=== PATIENT | female | born 1970 | race Caucasian/White ===

== ENCOUNTER 2022-02-13 10:20 | Emergency (ER) | payer BC ==
[~2022-02-13] VITALS: Ht 162.6 cm; Wt 68.0 kg
--- NOTE | 2022-02-13 10:30 | NUR ---
Patient ambulatory, alert and oriented x4 with complaints of Left eye stye and right foot pain 8/10 with redness noted. Vitals stable.
--- NOTE | 2022-02-13 10:32 | NUR ---
MD at bedside, medical screening examination in process.
[2022-02-13] MEDS ORDERED: MUPIROCIN 2% OINT 22 GM TUBE ONE (10:42)
[2022-02-13] MEDS ORDERED: MUPIROCIN 2% OINT 22 GM TUBE TP ONE (10:45)
[2022-02-13] MEDS ORDERED: CEPH500C2 PO (10:46)
[2022-02-13] MEDS ORDERED: [UNRECOGNIZED DRUG - CODE] OP (10:46)
[2022-02-13 10:59] VITALS: BP 121/80
--- NOTE | 2022-02-13 11:00 | NUR ---
Patient discharged to home in stable condition. Written and verbal after care instructions given. Patient verbalizes understanding of instructions. Stressed follow up or return to ER for worsening s/s.
== END 2022-02-13 10:59 | disposition home or self-care (01) ==
LOC: ER 10:20
DX: L97.518 Non-pressure chronic ulcer of other part of right foot with other specified severity (principal); L03.115 Cellulitis of right lower limb; L84 Corns and callosities; H00.015 Hordeolum externum left lower eyelid; E11.9 Type 2 diabetes mellitus without complications; Z88.6 Allergy status to analgesic agent; Z88.0 Allergy status to penicillin
CPT/HCPCS: A4663